=== PATIENT | male | born 1945 | race Caucasian/White ===

== ENCOUNTER → 2016-03-16 | Outpatient (CLI) | payer BC ==
[~2016-03-16] MED LIST: ASPIRIN E.C. 8181 MG PO; COLACE 100100 MG/CAP PO; DEPO-TESTOS100 MG/ML IM; FOSAMAX 70MG TA70 MG PO; NORCO 325 MG-51 TAB PO; PRINIVIL5 MG PO; PYRIDIUM200 M1 PO; ZETIA10 MG PO; ZOCOR 10MG10 MG PO; [UNRECOGNIZED DRUG - OTHER]; mvi; vit d
== END ==
LOC: COL.RAD 02-29 08:30
DX: M25.551 Pain in right hip (principal)
CPT/HCPCS: J3301

== ENCOUNTER → 2016-08-28 | Outpatient (CLI) | payer BC | LOC: COL.RAD 10:13 | DX: M25.551 Pain in right hip (principal) | CPT/HCPCS: J3301; Q9967 ==

== ENCOUNTER → 2016-10-08 | Outpatient (CLI) | payer BC | LOC: COL.RAD 12:46 | DX: M16.11 Unilateral primary osteoarthritis, right hip (principal) | CPT/HCPCS: J3301 ==

== ENCOUNTER → 2017-01-17 | Outpatient (CLI) | payer BC | LOC: COL.RAD 13:03 | DX: M25.551 Pain in right hip (principal) | CPT/HCPCS: J3301; Q9967 ==

== ENCOUNTER → 2018-08-18 | Outpatient (CLI) | payer BC | LOC: COL.VAS 09:49 | DX: I65.23 Occlusion and stenosis of bilateral carotid arteries (principal); I25.3 Aneurysm of heart; I34.0 Nonrheumatic mitral (valve) insufficiency; H34.8110 Central retinal vein occlusion, right eye, with macular edema; H53.9 Unspecified visual disturbance ==

== ENCOUNTER 2018-09-03 07:23 | Outpatient (CLI) | payer BC ==
[2004-10-13 16:22] VITALS: BP 135/84
[~2018-09-03] VITALS: Ht 177.8 cm; Wt 68.7 kg
[2018-09-03] MEDS ORDERED: MULTI VITAMINS1 TAB PO (08:02)
[2018-09-03] MEDS ORDERED: LIPITOR 40MG TA40 MG PO (08:02)
[2018-09-03] MEDS ORDERED: CALCIUM CARBON650 M2 (08:03)
[2018-09-03] MEDS ORDERED: ZESTRIL 10MG10 MG PO (08:04)
[2018-09-03] MEDS ORDERED: VITAMIN D31000 IU PO (08:04)
--- NOTE | 2018-09-03 08:05 | NUR ---
TO [facility] 16 AMB FOR SONNY, PT IS ALERT AND ORIENTATED X3, SKIN WARM AND DRY, LUNGS CLEAR, NO EDEMA NOTED, REVIEWED HISTORY WITH PT AND MED LIST. LAB TO DRAW BLOOD, IV STARTED #20 TO LEFT ARM, FIRST ATTEMPT. REVIEWED CONSENT AND SIGNED.
[2018-09-03 08:10] LABS: HEMATOCRIT 41.4 % (42.0-52.0); MEAN CELL VOLUME 91 fl (80.0-100.0); MEAN CORPUSCULAR HEMOGLOBIN 31 pg (27.0-31.0); MEAN CORPUSCULAR HGB CONC 34 g/dl (33.0-37.0); MEAN PLATELET VOLUME 9.8 fl (7.4-10.4); PLATELET COUNT 215 K/mm3 (130-400); RED BLOOD COUNT 4.53 M/mm3 (4.20-5.60); REDCELL DISTRIBUTION WIDTH-CV 14.2 % (11.5-14.5)
[2018-09-03 08:14] VITALS: BP 119/78; PULSE 57; TEMP 98.5
[2018-09-03 08:20] LABS: CALCIUM 9.5 mg/dL (8.4-10.2); CREATININE, serum 1.14 (0.66-1.25); POTASSIUM 4.3 mmol/L (3.4-5.0)
[2018-09-03 08:29] LABS: INR 0.9 (0.8-3.0); PROTHROMBIN TIME 10.5 SECONDS (9.7-12.8)
[2018-09-03 09:45] VITALS: BP 106/61; PULSE 51
--- NOTE | 2018-09-03 09:45 | NUR ---
REPORT FROM HERIBERTO JACKSON, PT IS SITTING UP IN BED, AWAKE AND ALERT, TAKES JUICE AND WATER, NO C/O
[2018-09-03 10:00] VITALS: BP 131/93; PULSE 51
--- NOTE | 2018-09-03 10:00 | NUR ---
CON'T SAME, WAITING TO VISIT WITH REVIEWED DISCHARGE INST. WITH PT ON MODERATE SEDATION, SONNY, NO CHANGES IN MEDS, AND NEXT FOLLOWUP APPT GIVEN WITH VERBAL UNDERSTANDING
[2018-09-03 10:15] VITALS: BP 147/87; PULSE 50
--- NOTE | 2018-09-03 10:26 | NUR ---
IV D'CD INTACT, PT UP IN ROOM DRESSED, WAITS FOR DR TO SEE HIM, NO C/O
--- NOTE | 2018-09-03 10:36 | NUR ---
DR SOSA INTO SEE PT, PT DISCHARGED AMB. TO CAR WITH CLAIMS AUDITOR
== END 2018-09-03 10:36 | disposition home or self-care (01) ==
LOC: COL.RAD 07:23
PROVIDERS: Internal Medicine Cardiovascular Disease
DX: I25.3 Aneurysm of heart (principal); I10 Essential (primary) hypertension; E78.2 Mixed hyperlipidemia; H34.8112 Central retinal vein occlusion, right eye, stable
CPT/HCPCS: J2704

== ENCOUNTER 2021-02-06 10:09 | Emergency (ER) | payer MEDICARE ==
[~2021-02-06] VITALS: Ht 175.3 cm; Wt 67.3 kg
[~2021-02-06 10:09] MED LIST changes: +CALCIUM CARBON650 M2; +LIPITOR 40MG TA40 MG PO; +MULTI VITAMINS1 TAB PO; +VITAMIN D31000 IU PO; +ZESTRIL 10MG10 MG PO
[2021-02-06 10:15] VITALS: TEMP 98.3
[2021-02-06 14:08] VITALS: BP 150/60; PULSE 60
== END 2021-02-06 14:08 | disposition home or self-care (01) ==
LOC: COL.ER 10:09
DX: M79.604 Pain in right leg (principal)